=== PATIENT | female | born 1985 | race Two or more races ===

== ENCOUNTER 2016-12-07 19:27 | Emergency (ER) | payer MEDICAID ==
[~2016-12-07] VITALS: Ht 154.9 cm; Wt 68.0 kg
[2016-12-07] MEDS ORDERED: SODIUM CHLORIDE 0.9% 1,000 ML IV ONE (19:45)
[2016-12-07 20:13] LABS: Urine Bilirubin Negative (Negative); Urine Blood Negative /uL (Negative); Urine Color Yellow (Yellow); Urine Glucose Normal (Normal); Urine Mucus FEW (None Seen); Urine Nitrite Negative (Negative); Urine RBC 2 /hpf (0 - 4); Urine Squamous Epithelial Cell FEW /hpf (<5); Urine Urobilinogen Normal (Negative)
[2016-12-07 20:14] LABS: Urine Ketone 1+ (Negative)
[2016-12-07 20:18] LABS: Basophils # (auto) 0 uL; Basophils % (auto) 0.3 % (0.0-2.0); Eosinophils # (auto) 0.1 uL; Hematocrit 36.9 % (36.0-46.0); Hemoglobin 12.3 g/dL (12.2-16.2); Lymphocytes # (auto) 1.4 uL; Lymphocytes % (auto) 13.9 % (10.0-50.0); Mean Corpuscular Hgb Conc. 33.4 g/dL (32.0-36.0); Mean Platelet Volume 7.4 fL (7.4-10.4); Monocytes # (auto) 0.4 uL; Monocytes % (auto) 3.8 % (0.0-12.0); Neutrophils # (auto) 8.2 uL; Platelet Count (auto) 332 10^3/uL (140-450); Red Cell Distribution Width 14.3 % (11.6-16.0); White Blood Cell 10.2 10^3/uL (4.4-10.8)
[2016-12-07 20:35] LABS: Albumin 3.2 g/dL (3.4-5.0); BUN/Creatinine Ratio 17.4; Calcium 8.2 mg/dL (8.5-10.1)
[2016-12-07 20:37] LABS: Bilirubin, Total 0.1 mg/dL (0.2-1.0); Total Protein 6.9 g/dL (6.4-8.2)
[2016-12-07 22:10] VITALS: BP 103/78
== END 2016-12-07 22:10 | disposition home or self-care (01) ==
LOC: EDBD 19:27 → ER 19:29
DX: G40.909 Epilepsy, unspecified, not intractable, without status epilepticus (principal)
CPT/HCPCS: 36415; 70450; 80053; 80307; 81001; 81025; 85025; 93005; 96360

== ENCOUNTER 2017-06-24 11:39 | Emergency (ER) | payer MEDICAID ==
[~2017-06-24] VITALS: Ht 154.9 cm; Wt 68.5 kg
[2017-06-24] MEDS ORDERED: SODIUM CHLORIDE 0.9% 1,000 ML IV ONE (11:40)
[2017-06-24 12:14] LABS: Basophils # (auto) 0 uL; Basophils % (auto) 0.2 % (0.0-2.0); Eosinophils # (auto) 0.1 uL; Eosinophils % (auto) 1.1 % (0.0-7.0); Hemoglobin 13.3 g/dL (12.2-16.2); Lymphocytes # (auto) 1.4 uL; Lymphocytes % (auto) 15.8 % (10.0-50.0); Mean Corpuscular Hemoglobin 29.3 pg (28.0-32.0); Mean Corpuscular Hgb Conc. 33.3 g/dL (32.0-36.0); Monocytes # (auto) 0.5 uL; Monocytes % (auto) 5.4 % (0.0-12.0); Neutrophils % (auto) 77.5 % (37.0-80.0); Platelet Count (auto) 284 10^3/uL (140-450); Red Cell Distribution Width 13.8 % (11.8-14.3); White Blood Cell 9.1 10^3/uL (4.4-10.8)
[2017-06-24 12:40] LABS: Albumin 3.8 g/dL (3.4-5.0); Alkaline Phosphatase 116 U/L (45-117); Anion Gap 7 (5-15); Aspartate Aminotransferase 10 U/L (15-37); BUN/Creatinine Ratio 14.8; Bilirubin, Total 0.2 mg/dL (0.2-1.0); Blood Urea Nitrogen 12 mg/dL (7-18); Calcium 8.5 mg/dL (8.5-10.1); Carbon Dioxide 24 mmol/L (21-32); Chloride 110 mmol/L (98-107); GFR African American 107 mL/min; GFR Non-African American 88 mL/min; Glucose 113 mg/dL (74-106); Potassium 4.2 mmol/L (3.5-5.1); Sodium 141 mmol/L (136-145); Total Protein 7.5 g/dL (6.4-8.2)
[2017-06-24 14:54] VITALS: BP 122/66
== END 2017-06-24 15:03 | disposition home or self-care (01) ==
LOC: EDBD 11:39 → ER 11:39
DX: G40.909 Epilepsy, unspecified, not intractable, without status epilepticus (principal); R41.82 Altered mental status, unspecified; R53.1 Weakness; R42 Dizziness and giddiness
CPT/HCPCS: 36415; 70450; 80053; 84484; 85025

== ENCOUNTER 2019-02-13 22:57 | Emergency (ER) | payer MEDICAID ==
[~2019-02-13] VITALS: Ht 154.9 cm; Wt 81.6 kg
[2019-02-13 23:44] LABS: Basophils # (auto) 0 uL; Basophils % (auto) 0.3 % (0.0-2.0); Eosinophils # (auto) 0.2 uL; Eosinophils % (auto) 2.3 % (0.0-7.0); Hematocrit 38.4 % (36.0-46.0); Hemoglobin 12.8 g/dL (12.2-16.2); Lymphocytes # (auto) 2.2 uL; Lymphocytes % (auto) 21.2 % (10.0-50.0); Mean Corpuscular Hemoglobin 28.5 pg (28.0-32.0); Mean Corpuscular Hgb Conc. 33.2 g/dL (32.0-36.0); Mean Corpuscular Volume 85.9 fL (80.0-100.0); Monocytes # (auto) 0.5 uL; Monocytes % (auto) 5.3 % (0.0-12.0); Neutrophils # (auto) 7.4 uL; Neutrophils % (auto) 70.9 % (37.0-80.0); Platelet Count (auto) 295 10^3/uL (140-450); Red Blood Cells 4.47 10^6/uL (4.0-5.20); Red Cell Distribution Width 14.1 % (11.8-14.3); White Blood Cell 10.4 10^3/uL (4.4-10.8)
[2019-02-14 00:04] LABS: Albumin 3.5 g/dL (3.4-5.0); Anion Gap 10 (5-15); Blood Urea Nitrogen 15 mg/dL (7-18); Calcium 8.7 mg/dL (8.5-10.1); Carbon Dioxide 23 mmol/L (21-32); Chloride 110 mmol/L (98-107); GFR African American 77 mL/min; GFR Non-African American 64 mL/min; Glucose 130 mg/dL (74-106); Potassium 3.7 mmol/L (3.5-5.1); Sodium 143 mmol/L (136-145)
[2019-02-14 00:07] LABS: Alanine Aminotransferase 30 U/L (13-56); Alkaline Phosphatase 143 U/L (45-117); Aspartate Aminotransferase 26 U/L (15-37); Bilirubin, Total < 0.1 mg/dL (0.2-1.0); Total Protein 7.3 g/dL (6.4-8.2)
[2019-02-14 02:06] LABS: Urine Bacteria FEW /hpf (None Seen); Urine Blood 3+ /uL (Negative); Urine Hyaline Cast FEW /lpf (0 - 2); Urine Mucus FEW (None Seen); Urine Specific Gravity 1.026 (1.001-1.035); Urine WBC 14 /hpf (0 - 5)
[2019-02-14] MEDS ORDERED: LORazepam 2MG/ML-1ML VIAL IV ONE (02:45)
[2019-02-14] MEDS ORDERED: LEVETIRACETAM 500 MG TAB PO ONE (02:45)
[2019-02-14] MEDS ORDERED: NITROFURANTOIN (MONO) 100 mg CAP PO ONE (02:45)
[2019-02-14 02:58] VITALS: BP 93/60
== END 2019-02-14 02:59 | disposition home or self-care (01) ==
LOC: EDBD 22:57 → ER 23:03
DX: R56.9 Unspecified convulsions (principal); N39.0 Urinary tract infection, site not specified
CPT/HCPCS: 36415; 80053; 81001; 81025; 85025